=== PATIENT | female | born 1975 | race Hispanic/Latino ===

== ENCOUNTER 2024-04-04 09:03 | Emergency (ER) | payer SELFPAY ==
[2024-04-04] MEDS ORDERED: Ketorolac Tromethamine 30 MG (1 mL) VIAL ONE (11:31)
[2024-04-04] MEDS ORDERED: carBAMazepine XR 200 mg ER.Tablet PO SCH (12:00)
== END 2024-04-04 12:26 | disposition home or self-care (01) ==
LOC: ERS 09:03
DX: E11.42 Type 2 diabetes mellitus with diabetic polyneuropathy (principal); I10 Essential (primary) hypertension; E11.43 Type 2 diabetes mellitus with diabetic autonomic (poly)neuropathy; K31.84 Gastroparesis; Z76.0 Encounter for issue of repeat prescription
CPT/HCPCS: 96372; 99282; J1885